=== PATIENT | male | born 1935 | race Caucasian/White ===

== ENCOUNTER 2016-05-13 21:47 | Inpatient (IN) | payer MEDICARE, OTHER ==
[2016-05-13 23:07] LABS: ABSOLUTE NEUTROPHIL COUNT 13.9 K/mm3 (1.8-7.7); BASO % 0.1 % (0.2-1.0); EOS % 0.1 % (0.9-2.9); HEMATOCRIT 35.8 % (32.0-52.0); HEMOGLOBIN 12.2 gm/l (14.0-18.0); IMM NEUT # 0.1 K/mm3 (0-0.2); IMM NEUT% 0.8 % (0-1); LYMPH # 0.7 (1.0-4.8); LYMPH % 4.4 % (15-45); MEAN CELL VOLUME 87.1 fl (80.0-94.0); MEAN CORPUSCULAR HEMOGLOBIN 29.7 pg (27.0-31.0); MEAN CORPUSCULAR HGB CONC 34.1 g/dl (33.0-37.0); MEAN PLATELET VOLUME 10.3 fl (7.4-10.4); MONO # 0.7 (0.0-0.8); MONO % 4.3 % (4-12); NEUT % 90.3 % (43-75); PLATELET COUNT 239 K/mm3 (130-400); RED CELL DISTRIBUTION WIDTH 13.4 % (11.5-14.5)
[2016-05-13] MEDS ORDERED: FUROSEMIDE 40 MG/4 ML VIAL ONE (23:12)
[2016-05-13 23:18] LABS: ALB/GLOB RATIO 1.2 (>1.0); ALBUMIN 3.8 gm/dL (3.5-5.7); CALCIUM 10.2 mg/dL (8.6-10.3)
[2016-05-14 00:20] LABS: SPECIFIC GRAVITY 1.015 (1.001-1.030); URINE BILIRUBIN NEGATIVE (NEGATIVE); URINE BLOOD TRACE (NEGATIVE); URINE GLUCOSE (UA) NEGATIVE (NEGATIVE); URINE LEUKOCYTE ESTERASE 2+ (NEGATIVE); URINE NITRITE NEGATIVE (NEGATIVE); URINE PROTEIN NEGATIVE (NEGATIVE); URINE UROBILINOGEN NORMAL (0-1 mg/dl)
[2016-05-14 00:21] LABS: URINE APPEARANCE CLEAR; URINE COLOR YELLOW
[2016-05-14 00:28] LABS: URINE BACTERIA FEW; URINE EPITHELIAL CELLS FEW /hpf; URINE RBC 0-1 /hpf; URINE WBC 40-50 /hpf
[2016-05-14] MEDS ORDERED: FUROSEMIDE 40 MG/4 ML VIAL ONE (02:27)
[2016-05-14 03:18] LABS: INR 2.65; PROTHROMBIN TIME 29.3 SECONDS (9.3-11.4)
[2016-05-14 04:55] VITALS: BMI 31.6
[2016-05-14] MEDS ORDERED: METOLAZONE 2.5 MG TABLET PO PRN (06:08)
[2016-05-14] MEDS ORDERED: MICONAZOLE NITRATE 2% TP PRN (06:08)
[2016-05-14] MEDS ORDERED: ALBUTEROL SULFATE 200 PUFFS/INH INHALER IH PRN ×2 (06:08→06:58)
[2016-05-14] MEDS ORDERED: SENNOSIDES 8.6 MG TABLET PO PRN (06:08)
[2016-05-14] MEDS ORDERED: POLYVINYL ALCOHOL 1.4% (TEARS) 300 GTTS/BOT SOLN.DROP OU PRN ×2 (06:08→12:27)
[2016-05-14] MEDS ORDERED: ACETAMINOPHEN 325 MG TABLET PO PRN (06:08)
[2016-05-14] MEDS ORDERED: NITROGLYCERIN 0.4 MG/TAB.SUBL BOT SL PRN (06:08)
[2016-05-14] MEDS ORDERED: BLISTEX LIPSTICK 1 EACH TP PRN (06:15)
[2016-05-14] MEDS ORDERED: BISACODYL 5 MG TABLET.EC PO PRN (06:15)
[2016-05-14] MEDS ORDERED: SODIUM CHLORIDE 0.9% 100 ML IV PRN (06:15)
[2016-05-14] MEDS ORDERED: BISACODYL 10 MG SUP PR PRN (06:15)
--- NOTE | 2016-05-14 07:28 | RAD ---
Exam: Two-view chest COMPARISON: 10/03/2015 and 05/04/2014 INDICATION: Shortness of breath and leg swelling. FINDINGS: PA and lateral views of the chest were obtained. Cardiomegaly is similar. Postsurgical changes of median sternotomy and valve replacement are again appreciated. Triple lead pacer remains. There is chronic pulmonary vascular congestion although there is no konrad pulmonary edema, focal airspace disease or pleural effusion. Vertebral plana is again noted at L1. IMPRESSION: No acute pulmonary process. Chronic cardiomegaly and pulmonary vascular congestion without pulmonary edema.
[2016-05-14] MEDS: HYDROCODONE/ACETAMINOPHEN 5/325MG TABLET PO PRN ×2 (08:12→18:06)
[2016-05-14] MEDS: GLIPIZIDE 5 MG TABLET PO SCH (08:13)
--- NOTE | 2016-05-14 08:58 | HP ---
Zaki Levi II [id number] DATE OF ADMISSION: 05/14/2016 CHIEF COMPLAINT: Ankle edema and dyspnea. HISTORY OF PRESENT ILLNESS: The patient is a 80-year-old male with a history of congestive heart failure who reports some three week history of some various symptoms. He was seen in early March and was given an antibiotic which was possibly Levaquin and he has noted a little bit of weight increase since then. The dyspnea was not necessarily severe, but has had some weight increase since that time. He has also noted some pain in his shoulders intermittently bilaterally. More recently, he was seen again for his respiratory symptoms and "rasp" and was given some prednisone and advised to try a higher dose of Lasix. He has noted some ankle swelling persisting and when he called his doctor today they recommended he seek medical attention about possibly starting some IV Lasix. PAST MEDICAL HISTORY: He has atrial fibrillation, he is on Coumadin. He has history of congestive heart failure, left ventricular ejection fraction on echo was 45% to 50% September 30, 2015. He has had some mild pulmonary hypertension noted as well. He has got valve replacements with a prosthetic aortic valve. He has diabetes mellitus type 2. He has previous history of transient ischemic attacks. He has had a history of essential tremor, chronic obstructive pulmonary disease, L1 and L2 compression fractures. He has chronic kidney disease, chronic anemia. PAST SURGICAL HISTORY: Includes mitral annuloplasty, prosthetic aortic valve, incision and drainage of perirectal abscess, bilateral carpal tunnel surgery, pacemaker placement initially in 1998, laparoscopic cholecystectomy, and he is listed as having left ankle surgery, but does not recall this. ALLERGIES: HE HAS MULTIPLE DRUG ALLERGIES INCLUDING THORAZINE, PROCAINAMIDE, ASPARTAME AND ALL ARTIFICIAL SWEETNERS, CLINAMYCIN, ERYTHROMYCIN, INFLUENZA. CURRENT MEDICATIONS: His home medication list: 1. Acetaminophen 650 mg by mouth every 6 hours as needed. 2. Albuterol 2 puffs inhaled every 4 hours as needed. 3. Vitamin C 500 mg by mouth at bedtime. 4. Aspirin 81 mg daily. 5. Symbicort 2 puffs inhaled twice daily. 6. Refresh Plus eye drops four times daily as needed. 7. Carvedilol 6.75 mg by mouth twice daily. 8. Zyrtec 10 mg at bedtime. 9. Docusate sodium 200 mg by mouth daily. 10. Uloric 80 mg by mouth daily. 11. Ferrous sulfate 325 mg daily. 12. Glipizide 10 mg by mouth every morning. 13. [place] 5/325 one to two by mouth every 8 hours as needed. 14. Lamictal is being tapered, he is only on 50 mg by mouth every evening. 15. Ativan 0.5 mg by mouth at bedtime and 0.5 mg by mouth every 4 hours as needed. 16. Magnesium oxide 400 mg by mouth twice daily. 17. Metolazone 2.5 mg by mouth every morning as needed. 18. Monistat apply to rash twice daily as needed. 19. Multiple vitamin 1 by mouth daily. 20. Nitroglycerine sublingually as needed. 21. Omeprazole 20 mg by mouth every morning. 22. Prednisone, he is receiving a burst of a prednisone at 25 mg currently and then will be done tomorrow. 23. Metamucil 15 gm by mouth daily. 24. Senna 8.6 mg by mouth twice daily as needed. 25. Simvastatin 30 mg at bedtime. 26. Spironolactone 12.5 mg by mouth daily. 27. Spiriva Respimat 2 puffs inhaled daily. 28. Torsemide 80 mg by mouth daily. 29. Coenzyme Q10 100 mg by mouth daily. 30. Vitamin D3 1000 units by mouth daily. 31. Warfarin 4 mg by mouth Wednesday, Wednesday, , Wednesday, Wednesday, and 2 mg Wednesday and Wednesday. SOCIAL HISTORY: He is and . He does not smoke. He worked in the [employer] and had asbestos exposure there. He has two children, one is a automatic edger in [facility], but is away in [place] right now. 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 FAMILY HISTORY: Father at 51 of a smoking related illness. Mom at age 85. REVIEW OF SYSTEMS: Eyes: He notes they are watering a lot and they can fog up, but this has been going on for years. Admits some osborn shadows, but has had multiple visits with lift manager for his eyes. Ears: He notes some hearing aids. Nose: Has sinus symptoms all the time. Mouth has been dry. Teeth: He is going to get an upper plate. Neck: He reports his neck is stiffer than hell and can hurt to straighten up more so on the right than left, but it has been this way for years. Lungs: He was coughing some white phlegm, but the last couple of days has been a bit better. He thinks this might be due to Spiriva. Fever: He reports he has a fever when his temperature is 98.6. He did not some sweats one time in the last couple of weeks and noticed he had some sweating on his right arm when he was getting his Lasix. Heart: He has a pacer. He has had some soreness around his pacer sometimes and did transmit info recently for this. Stomach: He has not been nauseated in the morning, which is a improvement for him as he reports normally he is somewhat nauseated in the a.m. He has had some constipated related to pain medicines. He notes some difficult urination, can drip for awhile and can have some loss of urine sometimes. Ankles have been more swollen recently, but are a little bit better since getting Lasix in the emergency room. Arms: He has pains in the shoulder some. Skin: He has had some rash in the groin treated with miconazole. He reports he can walk about 50 feet. He does have a cane and he also has a walker, but generally would use an electric shooter. He would like resuscitation. He does note some dietary indiscretions going [employer] and will ask them to prepare some low salt items. He reports he has had about four ribs since last month. PHYSICAL EXAMINATION: GENERAL: Nontoxic male somewhat talkative and tangential. VITAL SIGNS: Temperature 97.6, pulse 111, blood pressure 143/108, respirations 20, 96% saturation on room air. HEENT: Head is normocephalic, atraumatic. Eyes are grossly unremarkable. Ears: Hearing is not bad for age. Nose is unremarkable. Oropharynx: Has some missing teeth consistent with age, but no acute lesions. He describes his mouth as being dry, but it looks within normal limits. Posterior pharynx is not erythematous. He describes his voice as being somewhat raspy and is having some sore throat, but there is no tenderness and no masses noted. LUNGS: Generally clear to auscultation with fairly good air movement. Rare crackles noted in the base. HEART: Paced. Pacemaker is present without redness, swelling, or abnormal warmth. He has well healed midline chest incision as well. ABDOMEN: Nontender. Bowel sounds are normal. He notes some discomfort on palpation of the lower abdomen, but has to urinate and use the bathroom. BACK: Grossly unremarkable. GENITOURINARY: Deferred. EXTREMITIES: Lower extremities with 2+ edema suggested in the lower extremities. No ulcerations noted. He does have a small bruise on the tip of his left hallux as if he may have stubbed his toe at one time, but this is less than 1 cm in diameter. Onychomycosis is noted and some diffuse bruising consistent with age and Coumadin use is noted. NEUROLOGIC: He does not show any obvious neurologic deficits. LABORATORY: His labs show a white blood cell count of 15.4, hemoglobin 12.2, platelets 239. Coagulation, INR 2.65. Sodium 130, potassium 4.3, chloride 94, CO2 24, BUN 64, creatinine 2.1, glucose 196, calcium 10.2. LFT's are normal. Troponin 0.09. BNP is 427 which is one of his better results in the last two years. Albumin 3.8, globulin 3.1. Urinalysis shows 2+ leukocyte esterase, 40-50 white cells, 0-1 red cells, few bacteria, negative glucose, negative nitrites. Influenza testing is negative. DIAGNOSTICS: His EKG shows paced rhythm 74 beats per minute. Chest x-ray shows no acute pulmonary process, chronic cardiomegaly, and pulmonary vascular congestion without pulmonary edema. ASSESSMENT AND PLAN: 1. Increased ankle edema reported. His BNP is actually one of his better results. Plan to continue intravenous Lasix started in the emergency department. Monitor his creatinine. We will check an echocardiogram and elevate his legs. 2. Suspected urinary tract infection. We will culture urine and treat with Rocephin. 3. Diabetes type 2. Will continue current medications. Add a sliding scale while he is here. 4. Dyspnea. Will finish the prednisone. Will continue his inhalers. It may be that his dyspnea is related to his urinary tract infection. 5. Atrial fibrillation on Coumadin. Rate appears to be generally well controlled. INR is at goal. 6. Mechanical aortic valve. INR of 2.65. Patient will be checking what his Coumadin dose is suppose to be, but anticipate that between the recent prednisone and the Rocephin that will be giving will likely raise his INR. 7. 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 Check and echocardiogram and continue current medications. 8. Chronic kidney disease. Will monitor GFR estimated at 31 with him being borderline stage IV chronic kidney disease will monitor. 9. Anemia of chronic kidney disease. His hemoglobin is actually 12.2 today which is not bad. 10. Full code status and this is ordered. 11. Venous thrombosis prophylaxis. He is suspected to low risk due to his Coumadin use. JOB: [id number] CC: Dr. Tera Barajas delivery crew member in [place] Dr. Castaneda wellness manager in [place] Dr. Harvinder CANNON
[2016-05-14] MEDS ORDERED: PSYLLIUM SEED PO SCH (09:00)
[2016-05-14] MEDS ORDERED: PUMP TUBING ONE (09:00)
[2016-05-14] MEDS ORDERED: DOCUSATE SODIUM 100 MG CAPSULE PO SCH (09:00)
[2016-05-14] MEDS ORDERED: CARVEDILOL 3.125 MG TABLET PO SCH (09:00)
[2016-05-14] MEDS ORDERED: FEBUXOSTAT 80 MG TABLET PO SCH (09:00)
[2016-05-14] MEDS ORDERED: SPIRONOLACTONE 25 MG TABLET PO SCH (09:00)
[2016-05-14] MEDS ORDERED: TIOTROPIUM BROMIDE 18 MCG 5 CAP/INHALER IH SCH (09:00)
[2016-05-14] MEDS: CEFTRIAXONE 1 GRAM DUPLEX 50 ML IV SCH (09:07)
[2016-05-14] MEDS: DOCUSATE SODIUM 100 MG CAPSULE PO SCH (10:02)
[2016-05-14] MEDS: FEBUXOSTAT 40 MG TABLET PO SCH (10:02)
[2016-05-14] MEDS: MULTIVITAMINS 1 TAB TABLET PO SCH (10:02)
[2016-05-14] MEDS: LORAZEPAM 0.5 MG TABLET PO PRN ×2 (10:02→18:06)
[2016-05-14] MEDS: PANTOPRAZOLE 40 MG TABLET DR PO SCH (10:02)
[2016-05-14] MEDS: ASPIRIN (ENTERIC COATED) 81 MG TABLET.EC PO SCH (10:02)
[2016-05-14] MEDS: FUROSEMIDE 100 MG/10 ML VIAL IV SCH ×2 (10:03→21:11)
[2016-05-14] MEDS: VITAMIN D3 1,000 UNITS CAP.LIQ PO SCH (10:47)
[2016-05-14] MEDS: Magnesium Oxide 400 MG TABLET PO SCH ×2 (10:48→21:13)
[2016-05-14] MEDS: PREDNISONE 5 MG TABLET PO SCH (10:48)
[2016-05-14] MEDS: ALBUTEROL SULFATE MDI 60 PUFFS/INHALER IH PRN ×2 (10:49→15:21)
[2016-05-14] MEDS: COENZYME Q10 100 MG CAPSULE PO SCH (10:55)
[2016-05-14] MEDS: BUDESONIDE/FORMOTEROL 160/4.5 60 PUFFS/6 G INHALER IH SCH ×2 (10:59→21:41)
[2016-05-14] MEDS: NYSTATIN 100000 UNIT/ML PO SCH ×4 (11:00→21:41)
[2016-05-14] MEDS: TIOTROPIUM IH SCH (11:02)
[2016-05-14] MEDS: INSULIN ASPART (DOSE) 100 UNITS/1 ML SUB-Q PRN ×3 (13:29→21:46)
[2016-05-14] MEDS: WARFARIN SODIUM 2 MG TABLET PO SCH (15:15)
[2016-05-14] MEDS: LORAZEPAM 0.5 MG TABLET PO SCH (21:12)
[2016-05-14] MEDS: SIMVASTATIN 10 MG TABLET PO SCH (21:12)
[2016-05-14] MEDS: ASCORBIC ACID 250 MG TABLET PO SCH (21:12)
[2016-05-14] MEDS: CETIRIZINE HCL 10 MG TABLET PO SCH (21:13)
[2016-05-14] MEDS: CARVEDILOL 3.125 MG TABLET PO SCH (21:13)
[2016-05-14] MEDS: FERROUS SULFATE (65 Fe) 325 MG TABLET PO SCH (21:13)
[2016-05-14] MEDS ORDERED: SODIUM CHLORIDE 0.9% FLUSH 10 ML ONE (21:43)
[2016-05-14] MEDS ORDERED: IV START KIT ONE (21:44)
[2016-05-15 05:56] LABS: BASO % 0.2 % (0.2-1.0); EOS # 0.1 (0.0-0.5); EOS % 0.4 % (0.9-2.9); HEMATOCRIT 35.2 % (32.0-52.0); IMM NEUT # 0.1 K/mm3 (0-0.2); LYMPH # 1.1 (1.0-4.8); LYMPH % 8.9 % (15-45); MEAN CELL VOLUME 87.1 fl (80.0-94.0); MEAN CORPUSCULAR HEMOGLOBIN 29.7 pg (27.0-31.0); MEAN CORPUSCULAR HGB CONC 34.1 g/dl (33.0-37.0); MEAN PLATELET VOLUME 10.3 fl (7.4-10.4); MONO # 1.5 (0.0-0.8); MONO % 11.6 % (4-12); NEUT % 77.9 % (43-75); PLATELET COUNT 227 K/mm3 (130-400); RED CELL DISTRIBUTION WIDTH 13.4 % (11.5-14.5)
[2016-05-15 06:13] LABS: INR 2.39; PROTHROMBIN TIME 26.2 SECONDS (9.3-11.4)
[2016-05-15 06:16] LABS: CALCIUM 10.2 mg/dL (8.6-10.3); MAGNESIUM 1.7 mg/dL (1.9-2.7)
[2016-05-15] MEDS: GLIPIZIDE 5 MG TABLET PO SCH (07:00)
[2016-05-15] MEDS: CEFTRIAXONE 1 GRAM DUPLEX 50 ML IV SCH (07:02)
[2016-05-15] MEDS: INSULIN ASPART (DOSE) 100 UNITS/1 ML SUB-Q PRN ×3 (07:23→21:56)
[2016-05-15] MEDS: ALBUTEROL SULFATE MDI 60 PUFFS/INHALER IH PRN (07:27)
[2016-05-15] MEDS: FUROSEMIDE 100 MG/10 ML VIAL IV SCH (09:22)
[2016-05-15] MEDS: BUDESONIDE/FORMOTEROL 160/4.5 60 PUFFS/6 G INHALER IH SCH ×2 (09:24→20:32)
[2016-05-15] MEDS: VITAMIN D3 1,000 UNITS CAP.LIQ PO SCH (09:25)
[2016-05-15] MEDS: TIOTROPIUM IH SCH ×2 (09:25→15:20)
[2016-05-15] MEDS: PREDNISONE 5 MG TABLET PO SCH (09:26)
[2016-05-15] MEDS: Magnesium Oxide 400 MG TABLET PO SCH ×2 (09:26→20:33)
[2016-05-15] MEDS: CARVEDILOL 3.125 MG TABLET PO SCH ×2 (09:26→20:33)
[2016-05-15] MEDS: DOCUSATE SODIUM 100 MG CAPSULE PO SCH (09:26)
[2016-05-15] MEDS: PANTOPRAZOLE 40 MG TABLET DR PO SCH (09:26)
[2016-05-15] MEDS: MULTIVITAMINS 1 TAB TABLET PO SCH (09:26)
[2016-05-15] MEDS: ASPIRIN (ENTERIC COATED) 81 MG TABLET.EC PO SCH (09:27)
[2016-05-15] MEDS: SPIRONOLACTONE 25 MG TABLET PO SCH (09:27)
[2016-05-15] MEDS: NYSTATIN 100000 UNIT/ML PO SCH ×4 (09:31→22:58)
--- NOTE | 2016-05-15 12:41 | PDOC43 ---
- Subjective Chief Complaint: Edema and dyspnea. Denies dyspnea or chest pain, concerned about continued edema in feet and ankles. Episode of LUQ abdominal pain yesterday p.m. none now. - Objective Vital Signs Temperature 97.8 F 05/15/16 11:58 Pulse Rate 61 05/15/16 11:58 Respiratory Rate 18 05/15/16 11:58 Blood Pressure 140/74 05/15/16 11:58 O2 Saturation by Pulse Oximetry 96 05/15/16 11:58 Oxygen Delivery Method Room Air Oxygen Flow Rate 0 Intake and Output 05/14/16 05/15/16 05/16/16 06:59 06:59 06:59 Intake Total 2594 Output Total 900 2825 400 Balance -900 -231 -400 General: Alert, Oriented x3, Cooperative, No Acute Distress HEENT: Mucous membr. moist/pink Lungs: Clear to Auscultation Bilaterally Cardiovascular: Irregular Abdomen: Soft, Normal Bowel Sounds, No Tenderness, No Masses Extremities: Edema (2+ bilateral), Pulses Diminished but Palpable Skin: Normal Color Neurological: Normal Speech Psych/Mental Status: Normal Mood Laboratory 05/15/16 05:30 05/15/16 05:30 05/15/16 05/15/16 05/14/16 07:00 05:30 21:10 RBC 4.04 L PT 26.2 H BUN 73 H Estimated GFR 32 L POC Capillary Glucose 225 H 387 H Magnesium 1.7 L B-Natriuretic Peptide 478 H 05/14/16 05/14/16 05/14/16 15:54 15:51 13:17 RBC PT BUN Estimated GFR POC Capillary Glucose 345 H 429 H 218 H Magnesium B-Natriuretic Peptide Current Medications: Current meds reviewed in EMR. - Problems: Assessment/Plan (1) CHF (congestive heart failure) Qualifiers: Congestive heart failure type: combined Congestive heart failure chronicity: acute on chronic Qualifier Code: (I50.43) Acute on chronic combined systolic (congestive) and diastolic (congestive) heart failure Status: Acute Assessment/Plan: Acute on chronic combined CHF with EF 45% and pulmonary HTN. No O2 requirement , continue diuresis. Continue carvedilol, no ALEXANDRA/ARB due to CKD. Elevate legs and use compression to reduce edema. (2) Atrial fibrillation, chronic Status: Chronic Assessment/Plan: With pacemaker, rate controlled and on warfarin. (3) Benign essential hypertension Status: Chronic Assessment/Plan: Labile, increase carvedilol if needed. (4) CKD (chronic kidney disease) stage 3, GFR 30-59 ml/min Status: Chronic Assessment/Plan: Currently at his baseline, followed by Dr. Barajas (5) S/P aortic valve replacement with prosthetic valve Status: Chronic Assessment/Plan: On chronic anticoagulation with INR goal of 2.5-3.5 (6) Type II diabetes mellitus with renal manifestations Qualifiers: Diabetes mellitus complication detail: with chronic kidney disease Chronic kidney disease stage: stage 3 (moderate) Status: Chronic Assessment/Plan: BG has been elevated but just came off a course of steroid treatment. (7) COPD (chronic obstructive pulmonary disease) Qualifiers: COPD type: chronic bronchitis Chronic bronchitis type: mucopurulent Qualifier Code: (J41.1) Mucopurulent chronic bronchitis Status: Chronic Assessment/Plan: With chronic sputum production, would like to have albuterol MDI for prn use. (8) Chronic anemia Status: Chronic Assessment/Plan: Due to CKD, stable (9) Pyuria, sterile Status: Acute Assessment/Plan: Present on admit and treated for UTI but urine culture is negative therefore UTI is rulled out, ceftriaxone stopped. (10) Hypokalemia Status: Acute Assessment/Plan: Due to diuresis, replace (11) Hypomagnesemia Status: Chronic Assessment/Plan: Due to chronic diuretics, Oral replacement dose has been increased (12) Hyponatremia Status: Acute Assessment/Plan: resolved (13) Elevated troponin Status: Acute Assessment/Plan: mild, due to chronic kidney disease, not ACS VTE Prophylaxis: on warfarin. Disposition: Home likely tomorrow.
[2016-05-15] MEDS: COENZYME Q10 100 MG CAPSULE PO SCH (12:44)
[2016-05-15] MEDS: METOLAZONE 2.5 MG TABLET PO SCH (12:53)
[2016-05-15] MEDS: POTASSIUM CHLORIDE 20 MEQ TAB.PRT.SR PO SCH ×2 (12:53→20:34)
[2016-05-15] MEDS: FUROSEMIDE 80 MG TABLET PO SCH (15:10)
[2016-05-15] MEDS: FEBUXOSTAT 40 MG TABLET PO SCH (15:10)
[2016-05-15] MEDS: WARFARIN SODIUM 2 MG TABLET PO SCH (15:11)
[2016-05-15] MEDS: LORAZEPAM 0.5 MG TABLET PO SCH (20:33)
[2016-05-15] MEDS: CETIRIZINE HCL 10 MG TABLET PO SCH (20:33)
[2016-05-15] MEDS: ASCORBIC ACID 250 MG TABLET PO SCH (20:34)
[2016-05-15] MEDS: SENNOSIDES 8.6 MG TABLET PO SCH (20:34)
[2016-05-15] MEDS: FERROUS SULFATE (65 Fe) 325 MG TABLET PO SCH (20:34)
[2016-05-15] MEDS: SIMVASTATIN 10 MG TABLET PO SCH (20:34)
[2016-05-15] MEDS: HYDROCODONE/ACETAMINOPHEN 5/325MG TABLET PO PRN (21:56)
[2016-05-16] MEDS: ALBUTEROL SULFATE MDI 60 PUFFS/INHALER IH PRN (04:32)
[2016-05-16 06:57] LABS: HEMATOCRIT 33.5 % (32.0-52.0); HEMOGLOBIN 11.5 gm/l (14.0-18.0); MEAN CELL VOLUME 87.5 fl (80.0-94.0); MEAN CORPUSCULAR HGB CONC 34.3 g/dl (33.0-37.0); RED CELL DISTRIBUTION WIDTH 13.5 % (11.5-14.5)
[2016-05-16 07:12] LABS: INR 2.39; PROTHROMBIN TIME 26.3 SECONDS (9.3-11.4)
[2016-05-16 07:17] LABS: CALCIUM 10.2 mg/dL (8.6-10.3); MAGNESIUM 1.9 mg/dL (1.9-2.7)
[2016-05-16] MEDS: GLIPIZIDE 5 MG TABLET PO SCH ×2 (08:44→17:02)
[2016-05-16] MEDS ORDERED: CARVEDILOL 6.25 MG TABLET PO SCH (09:00)
[2016-05-16] MEDS: FEBUXOSTAT 40 MG TABLET PO SCH (09:26)
[2016-05-16] MEDS: METOLAZONE 2.5 MG TABLET PO SCH (09:28)
[2016-05-16] MEDS: DOCUSATE SODIUM 100 MG CAPSULE PO SCH (09:28)
[2016-05-16] MEDS: SENNOSIDES 8.6 MG TABLET PO SCH ×2 (09:28→21:07)
[2016-05-16] MEDS: VITAMIN D3 1,000 UNITS CAP.LIQ PO SCH (09:28)
[2016-05-16] MEDS: FUROSEMIDE 80 MG TABLET PO SCH ×2 (09:29→17:01)
[2016-05-16] MEDS: Magnesium Oxide 400 MG TABLET PO SCH ×2 (09:29→21:06)
[2016-05-16] MEDS: LORAZEPAM 0.5 MG TABLET PO PRN (09:29)
[2016-05-16] MEDS: MULTIVITAMINS 1 TAB TABLET PO SCH (09:29)
[2016-05-16] MEDS: PANTOPRAZOLE 40 MG TABLET DR PO SCH (09:29)
[2016-05-16] MEDS: SPIRONOLACTONE 25 MG TABLET PO SCH (09:30)
[2016-05-16] MEDS: COENZYME Q10 100 MG CAPSULE PO SCH (09:31)
[2016-05-16] MEDS: POTASSIUM CHLORIDE 20 MEQ TAB.PRT.SR PO SCH ×2 (09:31→21:04)
[2016-05-16] MEDS: NYSTATIN 100000 UNIT/ML PO SCH ×4 (09:32→21:03)
[2016-05-16] MEDS: ASPIRIN (ENTERIC COATED) 81 MG TABLET.EC PO SCH (09:33)
[2016-05-16] MEDS: INSULIN ASPART (DOSE) 100 UNITS/1 ML SUB-Q PRN (09:38)
[2016-05-16] MEDS: TIOTROPIUM IH SCH (09:41)
[2016-05-16] MEDS: BUDESONIDE/FORMOTEROL 160/4.5 60 PUFFS/6 G INHALER IH SCH ×2 (09:41→21:18)
--- NOTE | 2016-05-16 10:58 | PDOC43 ---
- Subjective Chief Complaint: Edema and dyspnea. C/o sore throat and cough as well as sleep apnea symptoms. Has CPAP at home but does not use it. - Objective Vital Signs Temperature 97.9 F 05/16/16 08:47 Pulse Rate 65 05/16/16 08:47 Respiratory Rate 24 05/16/16 09:06 Blood Pressure 145/91 05/16/16 08:47 O2 Saturation by Pulse Oximetry 98 05/16/16 08:47 Oxygen Delivery Method Room Air Oxygen Flow Rate 0 Intake and Output 05/15/16 05/16/16 05/17/16 06:59 06:59 06:59 Intake Total 2594 2368 520 Output Total 2825 4505 550 Balance -231 -7 -30 General: Alert, Oriented x3, Cooperative, No Acute Distress HEENT: Mucous membr. moist/pink Lungs: Clear to Auscultation Bilaterally Cardiovascular: Irregular (mechanical sound) Abdomen: Soft, Normal Bowel Sounds, No Tenderness, No Masses Extremities: Edema (1+ on left, trace on right), Pulses Diminished but Palpable Skin: Normal Color Neurological: Normal Speech Psych/Mental Status: Normal Mood Laboratory 05/16/16 05:30 05/16/16 05:30 05/16/16 05/16/16 05/15/16 08:56 05:30 21:46 RBC 3.83 L PT 26.3 H Anion Gap 7 L BUN 78 H Estimated GFR 34 L POC Capillary Glucose 219 H 407 H 05/15/16 05/15/16 18:17 12:29 RBC PT Anion Gap BUN Estimated GFR POC Capillary Glucose 328 H 136 H Current Medications: Current meds reviewed in EMR. - Problems: Assessment/Plan (1) CHF (congestive heart failure) Qualifiers: Congestive heart failure type: combined Congestive heart failure chronicity: acute on chronic Qualifier Code: (I50.43) Acute on chronic combined systolic (congestive) and diastolic (congestive) heart failure Status: Acute Assessment/Plan: Acute on chronic combined CHF with EF 45% and pulmonary HTN. No O2 requirement , continue diuresis. Continue carvedilol, no ALEXANDRA/ARB due to CKD. Elevate legs and use compression to reduce edema. (2) Atrial fibrillation, chronic Status: Chronic Assessment/Plan: With pacemaker, rate controlled and on warfarin. (3) Benign essential hypertension Status: Chronic Assessment/Plan: Labile, increase carvedilol (4) CKD (chronic kidney disease) stage 3, GFR 30-59 ml/min Status: Chronic Assessment/Plan: Currently at his baseline, followed by Dr. Barajas (5) S/P aortic valve replacement with prosthetic valve Status: Chronic Assessment/Plan: On chronic anticoagulation with INR goal of 2.5-3.5 (6) Type II diabetes mellitus with renal manifestations Qualifiers: Diabetes mellitus complication detail: with chronic kidney disease Chronic kidney disease stage: stage 3 (moderate) Status: Chronic Assessment/Plan: BG has been elevated but just came off a course of steroid treatment. Increase glipizide (7) COPD (chronic obstructive pulmonary disease) Qualifiers: COPD type: chronic bronchitis Chronic bronchitis type: mucopurulent Qualifier Code: (J41.1) Mucopurulent chronic bronchitis Status: Chronic Assessment/Plan: With chronic sputum production, would like to have albuterol MDI for prn use. Add mucinex (8) Chronic anemia Status: Chronic Assessment/Plan: Due to CKD, stable (9) Pyuria, sterile Status: Acute Assessment/Plan: Present on admit and treated for UTI but urine culture is negative therefore UTI is rulled out, ceftriaxone stopped. (10) Hypokalemia Status: Acute Assessment/Plan: Due to diuresis, replace (11) Hypomagnesemia Status: Chronic Assessment/Plan: Due to chronic diuretics, Oral replacement dose has been increased (12) Hyponatremia Status: Acute Assessment/Plan: resolved (13) Elevated troponin Status: Acute Assessment/Plan: mild, due to chronic kidney disease, not ACS VTE Prophylaxis: on warfarin. Disposition: Home likely tomorrow.
[2016-05-16] MEDS ORDERED: CARVEDILOL 6.25 MG TABLET PO ONE (11:00)
[2016-05-16] MEDS: GUAIFENESIN 600 MG TABLET.DR PO SCH ×2 (11:52→21:05)
[2016-05-16] MEDS: [UNRECOGNIZED DRUG - OTHER] PO PRN ×2 (11:52→17:13)
[2016-05-16] MEDS ORDERED: DOCUSATE SODIUM 100 MG CAPSULE PO ONE (12:57)
[2016-05-16] MEDS ORDERED: SENNOSIDES 8.6 MG TABLET PO ONE (12:57)
[2016-05-16] MEDS ORDERED: WARFARIN SODIUM 2 MG TABLET PO SCH (16:00)
[2016-05-16] MEDS: CETIRIZINE HCL 10 MG TABLET PO SCH (21:05)
[2016-05-16] MEDS: FERROUS SULFATE (65 Fe) 325 MG TABLET PO SCH (21:06)
[2016-05-16] MEDS: CARVEDILOL 6.25 MG TABLET PO SCH (21:06)
[2016-05-16] MEDS: ASCORBIC ACID 250 MG TABLET PO SCH (21:06)
[2016-05-16] MEDS: LORAZEPAM 0.5 MG TABLET PO SCH (21:06)
[2016-05-16] MEDS: SIMVASTATIN 10 MG TABLET PO SCH (21:07)
[2016-05-17] MEDS: LORAZEPAM 0.5 MG TABLET PO PRN (04:35)
[2016-05-17] MEDS: HYDROCODONE/ACETAMINOPHEN 5/325MG TABLET PO PRN (04:36)
[2016-05-17] MEDS: ALBUTEROL SULFATE MDI 60 PUFFS/INHALER IH PRN (04:38)
[2016-05-17 06:31] LABS: HEMATOCRIT 35.9 % (32.0-52.0); HEMOGLOBIN 12.1 gm/l (14.0-18.0); MEAN CELL VOLUME 88.6 fl (80.0-94.0); MEAN CORPUSCULAR HEMOGLOBIN 29.9 pg (27.0-31.0); MEAN CORPUSCULAR HGB CONC 33.7 g/dl (33.0-37.0); RED CELL DISTRIBUTION WIDTH 13.6 % (11.5-14.5)
[2016-05-17 06:42] LABS: INR 2.61; PROTHROMBIN TIME 28.9 SECONDS (9.3-11.4)
[2016-05-17 06:47] LABS: CALCIUM 10.9 mg/dL (8.6-10.3)
[2016-05-17] MEDS: POTASSIUM CHLORIDE 20 MEQ TAB.PRT.SR PO SCH (08:44)
[2016-05-17] MEDS: METOLAZONE 2.5 MG TABLET PO SCH (08:46)
[2016-05-17] MEDS: SENNOSIDES 8.6 MG TABLET PO SCH (08:46)
[2016-05-17] MEDS: SPIRONOLACTONE 25 MG TABLET PO SCH (08:47)
[2016-05-17] MEDS: GUAIFENESIN 600 MG TABLET.DR PO SCH (08:48)
[2016-05-17] MEDS: CARVEDILOL 6.25 MG TABLET PO SCH (08:49)
[2016-05-17] MEDS: VITAMIN D3 1,000 UNITS CAP.LIQ PO SCH (08:49)
[2016-05-17] MEDS: FUROSEMIDE 80 MG TABLET PO SCH (08:50)
[2016-05-17] MEDS: GLIPIZIDE 5 MG TABLET PO SCH (08:50)
[2016-05-17] MEDS: MULTIVITAMINS 1 TAB TABLET PO SCH (08:50)
[2016-05-17] MEDS: DOCUSATE SODIUM 100 MG CAPSULE PO SCH (08:51)
[2016-05-17] MEDS: Magnesium Oxide 400 MG TABLET PO SCH (08:51)
[2016-05-17] MEDS: ASPIRIN (ENTERIC COATED) 81 MG TABLET.EC PO SCH (08:51)
[2016-05-17] MEDS: FEBUXOSTAT 40 MG TABLET PO SCH (08:53)
[2016-05-17] MEDS: PANTOPRAZOLE 40 MG TABLET DR PO SCH (08:53)
[2016-05-17] MEDS: BUDESONIDE/FORMOTEROL 160/4.5 60 PUFFS/6 G INHALER IH SCH (08:54)
[2016-05-17 09:28] VITALS: BP 125/75
[2016-05-17] MEDS: INSULIN ASPART (DOSE) 100 UNITS/1 ML SUB-Q PRN ×2 (09:48→13:19)
[2016-05-17] MEDS: TIOTROPIUM IH SCH (10:56)
[2016-05-17] MEDS: NYSTATIN 100000 UNIT/ML PO SCH (10:58)
--- NOTE | 2016-05-17 12:38 | PDOC5 ---
ADMIT DATE: 05/14/16 DISCHARGE DATE: 05/17/16 ADMISSION DIAGNOSES: CHF exacerbation PROCEDURES PERFORMED THIS HOSPITALIZATION: ECHO 05/14/16--EF 35-40% CONSULTATIONS: OT/PT, he is independent in his ADLs HOSPITAL COURSE: This is a 80 year old presented with symptoms of CHF. He was diuresed with furosemide and metolazone and had imporvment in his pulmonary edema, peripheral edema and in his creatinine. ECHO showed stable chronic combined heart failure. Carvedilol and Glipizide doses were increased. On he is stable for discharge. - Exam Vital Signs Temperature 97.4 F 05/17/16 08:00 Pulse Rate 60 05/17/16 08:00 Respiratory Rate 20 05/17/16 08:00 Blood Pressure 125/75 05/17/16 08:00 O2 Saturation by Pulse Oximetry 97 05/17/16 08:00 Oxygen Delivery Method Room Air Oxygen Flow Rate 0 General: Alert, Oriented x3, Cooperative, No Acute Distress HEENT: Mucous membr. moist/pink Lungs: Clear to Auscultation Bilaterally Cardiovascular: Irregular (mechanical sounds) Abdomen: Soft, Normal Bowel Sounds, No Tenderness, No Masses Extremities: Edema (trace on dorsum of feet only), Pulses Diminished but Palpable Skin: Normal Color Neurological: Normal Speech Psych/Mental Status: Normal Mood - Results Laboratory 05/17/16 05:30 05/17/16 05:30 05/17/16 05/17/16 05/16/16 08:40 05:30 23:56 RBC 4.05 L PT 28.9 H BUN 81 H Estimated GFR 37 L POC Capillary Glucose 216 H 250 H Calcium 10.9 H 05/16/16 05/16/16 19:27 14:52 RBC PT BUN Estimated GFR POC Capillary Glucose 127 H 234 H Calcium - Problems:Assessment/Plan (1) CHF (congestive heart failure) Qualifiers: Congestive heart failure type: combined Congestive heart failure chronicity: acute on chronic Qualifier Code: (I50.43) Acute on chronic combined systolic (congestive) and diastolic (congestive) heart failure Status: Acute Assessment/Plan: Acute on chronic combined CHF with EF 45% and pulmonary HTN. No O2 requirement , has diuresed well. Continue carvedilol, no ALEXANDRA/ARB due to CKD. Elevate legs and use compression to reduce edema. (2) Atrial fibrillation, chronic Status: Chronic Assessment/Plan: With pacemaker, rate controlled and on warfarin. (3) Benign essential hypertension Status: Chronic Assessment/Plan: Improved with increase in carvedilol dose (4) CKD (chronic kidney disease) stage 3, GFR 30-59 ml/min Status: Chronic Assessment/Plan: Creatinine has improved from 2.1 on admit to 1.8 today. Currently at his baseline, followed by Dr. Barajas (5) S/P aortic valve replacement with prosthetic valve Status: Chronic Assessment/Plan: On chronic anticoagulation with INR goal of 2.5-3.5 (6) Type II diabetes mellitus with renal manifestations Qualifiers: Diabetes mellitus complication detail: with chronic kidney disease Chronic kidney disease stage: stage 3 (moderate) Status: Chronic Assessment/Plan: BG has been elevated but just came off a course of steroid treatment. Glipizide dose increased. (7) COPD (chronic obstructive pulmonary disease) Qualifiers: COPD type: chronic bronchitis Chronic bronchitis type: mucopurulent Qualifier Code: (J41.1) Mucopurulent chronic bronchitis Status: Chronic Assessment/Plan: With chronic sputum production, would like to have albuterol MDI for prn use. Add mucinex (8) Chronic anemia Status: Chronic Assessment/Plan: Due to CKD, stable (9) Pyuria, sterile Status: Acute Assessment/Plan: Present on admit and treated for UTI but urine culture is negative therefore UTI is rulled out, ceftriaxone stopped. (10) Hypokalemia Status: Acute Assessment/Plan: Due to diuresis, resolved (11) Hypomagnesemia Status: Chronic Assessment/Plan: Due to chronic diuretics, Oral replacement dose has been increased (12) Hyponatremia Status: Acute Assessment/Plan: resolved (13) Elevated troponin Status: Acute Assessment/Plan: mild, due to chronic kidney disease, not ACS (14) URI (upper respiratory infection) Qualifiers: URI type: unspecified viral URI Qualifier Code: (J06.9) Acute upper respiratory infection, unspecified Status: Acute Assessment/Plan: c/op URI symptoms, difficult to assess on top of chronic bronchitis and CHF. Discharge home on mucinex. - Disposition: Disposition: Home today - Discharge Plan Instruction Forms: Heart Failure, Warfarin Therapy Education Forms: Discharge Instructions Prescriptions: Carvedilol [COREG 6.25 MG TABLET (SHF)] 12.5 mg PO BID #60 tablet Furosemide [LASIX 80 MG TABLET (SHF)] 80 mg PO [id number] #60 tablet Glipizide [GLUCOTROL 5 MG TABLET (SHF)] 10 mg PO BIDAC #60 tablet Guaifenesin [GUAIFENESIN 600 MG LA TABLET (SHF)] 1,200 mg PO BID #60 tablet. Metolazone [ZAROLXOLYN 2.5 MG TABLET (F)] 2.5 mg PO QAM #30 tablet Potassium Chloride [K-DUR 20 MEQ SR TAB (SHF)] 20 meq PO BID #60 tab.prt.sr Warfarin Sodium [COUMADIN 2 MG TABLET] 4 mg PO DAILY@1600 #30 tablet Follow-Up: Tera Levy MD [Primary Care Provider] - 05/21/16 11:00 am Condition: Good Disposition: Home
[2016-05-17] MEDS ORDERED: FUROSEMIDE 40 MG TABLET PO SCH (16:00)
[2016-05-17] MEDS ORDERED: WARFARIN SODIUM 2 MG TABLET PO SCH (16:00)
== END 2016-05-17 14:25 | disposition home or self-care (01) | DRG 291 ==
LOC: ED 21:47 → MS 05-14 03:43 → ICU 05-15 18:30
PROVIDERS: ADMIT Family Medicine; ATTEND Family Medicine
DX: I13.0 Hypertensive heart and chronic kidney disease with heart failure and stage 1 through stage 4 chronic kidney disease, or unspecified chronic kidney disease (principal); I50.43 Acute on chronic combined systolic (congestive) and diastolic (congestive) heart failure; N18.4 Chronic kidney disease, stage 4 (severe); N17.9 Acute kidney failure, unspecified; M48.56XA Collapsed vertebra, not elsewhere classified, lumbar region, initial encounter for fracture; N39.0 Urinary tract infection, site not specified; E11.22 Type 2 diabetes mellitus with diabetic chronic kidney disease; I48.91 Unspecified atrial fibrillation; Z79.01 Long term (current) use of anticoagulants; J44.9 Chronic obstructive pulmonary disease, unspecified; I27.2 Other secondary pulmonary hypertension; Z95.0 Presence of cardiac pacemaker; R06.00 Dyspnea, unspecified; D63.1 Anemia in chronic kidney disease